=== PATIENT | female | born 1935 | race Two or more races ===

== ENCOUNTER 2018-12-06 12:14 | Emergency (ER) | payer MEDICARE, OTHER ==
[~2018-12-06] VITALS: Ht 134.6 cm; Wt 45.0 kg
--- NOTE | 2018-12-06 12:35 | NUR ---
PT TO ED FOR CP SINCE . PT SEEN AT [facility] ON 11/23/18 FOR SAME. PT SPEAKS LIMITED [place] AND CAN TRANSLATE. PER EMS, PAIN IS MUSCULOSKELETAL IN NATURE. [facility]SA 12 LEAD SR. PAIN WITH MOVEMENT, RADIATES TO LEFT UPPER BACK AND IS REPRODUCIBLE WITH PALPATION AND MOVEMENT. CONNECTED TO MONITORS. HTN, ALL OTHER VSS. AWAITING MD ORDERS. CALL LIGHT WITHIN REACH.
[2018-12-06] MEDS ORDERED: MORPHINE SULFATE 4 MG/ML, 1ML ONE (13:02)
[2018-12-06] MEDS ORDERED: ONDANSETRON 2MG/ML, 2ML ONE (13:02)
--- NOTE | 2018-12-06 13:11 | NUR ---
REQUESTED RECORDS FROM [facility].
--- NOTE | 2018-12-06 13:13 | NUR ---
XRAY TO BEDSIDE.
[2018-12-06 13:15] VITALS: BP 158/72
--- NOTE | 2018-12-06 13:21 | NUR ---
PT REFUSING BLOOD DRAW AT THIS TIME. VSS. AT BEDSIDE. CALL LIGHT WITHIN REACH.
[2018-12-06] MEDS ORDERED: ZIPRASIDONE 20 MG INJ IM ONE (13:30)
--- NOTE | 2018-12-06 13:33 | NUR ---
PT AGREEABLE TO LAB DRAW. LABS COLLECTED AND SENT. AWAITING RECORDS FROM [facility].
[2018-12-06 13:39] LABS: BASOPHILS # (AUTO) 0.03 x10^3/uL (0-0.1); BASOPHILS % (AUTO) 0 % (0-1); EOSINOPHILS # (AUTO) 0.05 x10^3/uL (0-0.4); EOSINOPHILS % (AUTO) 1 % (1-7); LYMPHOCYTES # (AUTO) 0.77 x10^3/uL (1-3.4); LYMPHOCYTES % (AUTO) 10 % (22-44); MD NO; MEAN CORPUSCULAR HEMOGLOBIN 30.4 pg (27.0-34.8); MEAN CORPUSCULAR HGB CONC 33.6 g/dL (32.4-35.8); MEAN CORPUSCULAR VOLUME 90.5 fL (80-100); MEAN PLATELET VOLUME 6.9 fL (7.4-10.4); MONOCYTES # (AUTO) 0.27 x10^3/uL (0.2-0.8); MONOCYTES % (AUTO) 4 % (2-9); NEUTROPHILS # (AUTO) 6.56 x10^3/uL (1.8-6.8); NEUTROPHILS % (AUTO) 86 % (42-75); PLATELET COUNT 273 x10^3/uL (130-400); RED BLOOD COUNT 4.41 x10^6/uL (3.82-5.3); RED CELL DISTRIBUTION WIDTH 14.2 % (9.6-15.2)
[2018-12-06 13:52] LABS: ANION GAP 5 mmol/L (5-15); CALCIUM 8.3 mg/dL (8.5-10.1); CHLORIDE 110 mmol/L (98-107); CREATININE 1.01 mg/dL (0.55-1.02)
[2018-12-06 13:55] LABS: TROPONIN I < 0.015 ng/mL (0.000-0.045)
== END 2018-12-06 14:41 | disposition home or self-care (01) ==
LOC: ED 13:37
DX: R07.89 Other chest pain (principal)
CPT/HCPCS: 36415; 71045; 80048; 82040; 84484; 85025; 93005; 99284